=== PATIENT | female | born 1970 | race Caucasian/White ===

== ENCOUNTER 2024-02-26 01:06 | Emergency (ER) | payer MEDICAID, OTHER ==
[~2024-02-26] VITALS: Ht 170.2 cm; Wt 61.2 kg
[2024-02-26] MEDS ORDERED: LORA10TA62 PO (01:49)
[2024-02-26] MEDS ORDERED: LEVO125T8 PO (01:49)
[2024-02-26] MEDS ORDERED: HYDROCODONE/APAP 10-325 MG TABLET ONE (02:10)
[2024-02-26] MEDS: HYDROCODONE/APAP 10-325 MG TABLET PO ONE (02:12)
[2024-02-26] MEDS ORDERED: TRAM50TA2 PO (02:55)
[2024-02-26] MEDS ORDERED: IBUP-1955 PO (02:58)
[2024-02-26 03:03] VITALS: BP 128/85; TEMP 98.6; O2SAT 99
== END 2024-02-26 03:03 | disposition home or self-care (01) ==
LOC: ER 01:18
DX: M16.11 Unilateral primary osteoarthritis, right hip (principal); R03.0 Elevated blood-pressure reading, without diagnosis of hypertension; F17.210 Nicotine dependence, cigarettes, uncomplicated; Z85.41 Personal history of malignant neoplasm of cervix uteri; Z90.89 Acquired absence of other organs; Z79.890 Hormone replacement therapy; Z91.030 Bee allergy status; Z88.2 Allergy status to sulfonamides
CPT/HCPCS: 73502; A4606; A4663